=== PATIENT | male | born 1990 | race Caucasian/White ===

== ENCOUNTER 2021-08-26 18:22 | Emergency (ER) | payer BC ==
[2021-08-26] MEDS ORDERED: Sodium Chloride 0.9% 1000 ML 1,000 ML IV STA ×2 (18:50→20:01)
[2021-08-26] MEDS ORDERED: TORAdol 30 mg Injection IV ONE (18:50)
[2021-08-26] MEDS ORDERED: Sodium Chloride 0.9% 1000 ML 1,000 ML ONE ×3 (18:53→20:54)
[2021-08-26] MEDS ORDERED: TORAdol 30 mg Injection ONE (18:53)
[2021-08-26 19:06] LABS: Absolute Neutrophil Ct (ANC) 7.59 (1.4-6.9); BASOPHIL % 0.1 % (0.0-0.4); Basophil (Absolute #) 0.01 (0-0.4); Eosinophil % 0.8 % (0.00-5.0); Eosinophil (Absolute #) 0.09 (0-0.5); Hematocrit 40.8 % (42-50); Hemoglobin 12.9 gm/dl (12.5-18.0); Lymphocyte (Absolute #) 2.32 (1.0-4.6); Lymphocytes % 21.1 % (24.0-44.0); Mean Cell Volume 99.5 fl (78-100); Mean Corpuscular Hemoglobin 31.5 pg (26-32); Mean Corpuscular Hgb Concent. 31.6 g/dl (32-36); Mean Platelet Volume 11.1 fl (7.5-11.0); Monocyte (Absolute #) 0.96 (0.0-1.3); Monocytes % 8.8 % (0.0-12.0); Neutrophil % 69.2 % (36.0-66.0); Platelet Count 342 K/mm3 (150-450); Red Cell Distribution Width 12.5 % (11.5-14.0)
[2021-08-26 19:26] LABS: Appearance SLIGHTLY CLOUDY (CLEAR); Bilirubin NEGATIVE (NEGATIVE); Blood NEGATIVE Ery/ul (0-5); Glucose NEGATIVE (NEGATIVE); Ketones TRACE (NEGATIVE); Leukocyte Esterase NEGATIVE (NEGATIVE); Mucus SLIGHT /HPF (NEGATIVE); Nitrite NEGATIVE (NEGATIVE); Protein,Urine Dip NEGATIVE (Negative); Specific Gravity 1.027 (1.005-1.025); Urobilinogen NEGATIVE mg/dL (0-1)
[2021-08-26 19:33] LABS: ALBUMIN 4.9 g/dL (3.5-5.0); ALKALINE PHOSPHATASE 63 U/L (38-126); ANION GAP 14.8 MEQ/L (5-15); BLOOD UREA NITROGEN 18 mg/dL (9-20); CHLORIDE 106 mmol/L (98-107); Carbon Dioxide 23 mmol/L (22-30); Creatinine 1 0.99 mg/dL (0.66-1.25); EST GLOMERULAR FILTRATION RATE > 60.0 ML/MIN; Glucose 125 mg/dL (74-106); LIPASE 40 U/L (23-300); Potassium 4.1 mmol/L (3.5-5.1); SGOT/AST 28 U/L (17-59); SGPT/ALT 19 U/L (0-50); SODIUM 140 mmol/L (137-145); Total Protein 7.3 g/dL (6.3-8.2)
--- NOTE | 2021-08-26 19:54 | ERPHSYRPT ---
- History of Present Illness Time Seen by Provider: 08/26/21 18:45 Historian: patient Exam Limitations: no limitations Patient Subjective Stated Complaint: pt reports LUQ ABD PAIN starting today after work, pt denies any injury or accident, pt states he also got dizzy when the pain started. Triage Nursing Assessment: pt is aox3, pupils perrl, afebrile, pt appears pale, clammy, radial pulses strong and equal, cap refill < 3 seconds, pt abd soft, tender to the LUQ, pt skin intact. Physician History: Patient is a 31-year-old male presents to our ED with acute onset left upper quadrant pain. Patient states that he was climbing into his truck when the pain started. Patient became acutely dizzy for short period of time. He feels well at this time. Pain was well localized. No radiation. Pain worse with palpation. Pain improved with rest. Patient denies any trauma. No falls. No altercations. Patient denies any history of mononucleosis. No chest pain or shortness of breath. No nausea vomiting or diaphoresis. No numbness tingling or weakness. Patient voices no other complaints or concerns at this time. Timing/Duration: today Activities at Onset: other (Climbing into his truck.) Quality: aching Abdominal Pain Onset Location: LUQ Pain Radiation: no radiation Severity of Pain-Max: moderate Severity of Pain-Current: mild Associated Symptoms: other (Dizziness) Previous symptoms: no prior history Allergies/Adverse Reactions: No Known Drug Allergies Allergy (Unverified 08/26/21 18:46) Home Medications: No Reportable Medications [No Reported Medications] 08/26/21 [History] Hx Tetanus, Diphtheria Vaccination/Date Given: Yes Hx Influenza Vaccination/Date Given: No Hx Pneumococcal Vaccination/Date Given: No Immunizations Up to Date: Yes Travel Risk - International Travel Have you traveled outside of the country in past 3 weeks: No - Coronavirus Screening Are you exhibiting any of the following symptoms?: No Close contact with a COVID-19 positive Pt in past 14-21 Days: No - Vaccine Status Have you recieved a Covid-19 vaccination: No - Review of Systems Constitutional: No Symptoms, No Fever, No Chills Eyes: No Symptoms Ears, Nose, & Throat: No Symptoms Respiratory: No Symptoms, No Cough, No Dyspnea Cardiac: No Symptoms, No Chest Pain, No Edema, No Syncope Abdominal/Gastrointestinal: No Symptoms, No Abdominal Pain, No Nausea, No Vomiting, No Diarrhea Genitourinary Symptoms: No Symptoms, No Dysuria Musculoskeletal: No Symptoms, No Back Pain, No Neck Pain Skin: No Symptoms, No Rash Neurological: No Symptoms, No Dizziness, No Focal Weakness, No Sensory Changes Psychological: No Symptoms Endocrine: No Symptoms Hematologic/Lymphatic: No Symptoms Immunological/Allergic: No Symptoms All Other Systems: Reviewed and Negative - Past Medical History Pertinent Past Medical History: No - Past Surgical History Past Surgical History: No - Social History Smoking Status: Current every day smoker Drug Use: none Patient Lives Alone: No - Nursing Vital Signs Nursing Vital Signs: Initial Vital Signs Temperature 98.5 F 08/26/21 18:34 Pulse Rate 114 H 08/26/21 18:34 Respiratory Rate 20 08/26/21 18:34 Blood Pressure 125/90 08/26/21 18:34 O2 Sat by Pulse Oximetry 99 08/26/21 18:34 Pain Scale Pain Intensity 5 - Physical Exam General Appearance: no apparent distress, alert Eye Exam: PERRL/EOMI, eyes nml inspection Ears, Nose, Throat Exam: normal ENT inspection, pharynx normal, moist mucous membranes Neck Exam: normal inspection, non-tender, supple, full range of motion Respiratory Exam: normal breath sounds, lungs clear, airway intact, No respiratory distress Cardiovascular Exam: regular rate/rhythm, normal heart sounds, normal peripheral pulses Gastrointestinal/Abdomen Exam: soft, tenderness (Tenderness to palpation left upper quadrant into the left flank.), No mass, No guarding Back Exam: normal inspection, normal range of motion, No CVA tenderness, No vertebral tenderness Extremity Exam: normal inspection, normal range of motion, pelvis stable Neurologic Exam: alert, oriented x 3, cooperative, normal mood/affect, nml cerebellar function, sensation nml, No motor deficits Skin Exam: normal color, warm, dry Lymphatic Exam: No adenopathy SpO2 Interpretation: normal SpO2: 97 O2 Delivery: Room Air - Course Nursing assessment & vital signs reviewed: Yes - CT Exams Abdomen/Pelvis CT Interpretation: Tele-radiologist Report (No comparisons. Enlarged 15.5 cm he terogenous spleen with mild abdomen and pelvic free fluid rule out splenic rupture. Mild distended gallbladder with multiple tiny cholesterol stones. No renal stones or obstructive uropathy. Normal appendix.) Ordered Tests: Active Orders 24 hr Category Date Time Status IV Insertion STAT Care 08/26/21 18:50 Active IV Insertion-2nd Peripheral STAT Care 08/26/21 19:59 Active ABDOMEN AND PELVIS W/0 CONTRAS [CT] Stat Exams 08/26/21 18:50 Taken CBC W DIFF Stat Lab 08/26/21 19:00 Completed CMP Stat Lab 08/26/21 19:00 Completed LIPASE Stat Lab 08/26/21 19:00 Completed TROPONIN Q3H Lab 08/26/21 19:00 Completed TROPONIN Q3H Lab 08/26/21 22:00 Ordered TROPONIN Q3H Lab 08/27/21 01:00 Ordered TROPONIN Q3H Lab 08/27/21 04:00 Ordered TROPONIN Q3H Lab 08/27/21 07:00 Ordered UA W/RFX UR CULTURE Stat Lab 08/26/21 18:52 Completed Medication Summary Generic Name Dose Route Start Last Admin Trade Name Freq PRN Reason Stop Dose Admin Sodium Chloride 1,000 mls @ 100 mls/hr 08/26/21 21:00 08/26/21 20:55 Sodium Chloride 0.9% 1000 Ml IV 09/25/21 20:59 100 mls/hr .Q10H ALTARGACIA Administration Discontinued Medications Generic Name Dose Route Start Last Admin Trade Name Freq PRN Reason Stop Dose Admin Fentanyl Citrate 100 mcg 08/26/21 19:59 08/26/21 20:05 Fentanyl Citrate 100 Mcg/2 Ml* Vial IV 08/26/21 20:00 100 mcg STAT ONE Administration Fentanyl Citrate Confirm 08/26/21 20:02 Fentanyl Citrate 100 Mcg/2 Ml* Vial Administered 08/26/21 20:03 Dose 100 mcg .ROUTE .STK-MED ONE Fentanyl Citrate 100 mcg 08/26/21 20:53 08/26/21 20:55 Fentanyl Citrate 100 Mcg/2 Ml* Vial IV 08/26/21 20:54 100 mcg STAT ONE Administration Fentanyl Citrate Confirm 08/26/21 20:54 Fentanyl Citrate 100 Mcg/2 Ml* Vial Administered 08/26/21 20:55 Dose 100 mcg .ROUTE .STK-MED ONE Sodium Chloride 1,000 mls @ 999 mls/hr 08/26/21 18:50 08/26/21 19:56 Sodium Chloride 0.9% 1000 Ml IV 08/26/21 19:50 Infused .Q1H1M STA Infusion Sodium Chloride Confirm 08/26/21 18:53 Sodium Chloride 0.9% 1000 Ml Administered 08/26/21 18:54 Dose 1,000 mls @ ud .ROUTE .STK-MED ONE Sodium Chloride 1,000 mls @ 999 mls/hr 08/26/21 20:01 08/26/21 20:05 Sodium Chloride 0.9% 1000 Ml IV 08/26/21 21:01 999 mls/hr .Q1H1M STA Administration Sodium Chloride Confirm 08/26/21 20:02 Sodium Chloride 0.9% 1000 Ml Administered 08/26/21 20:03 Dose 1,000 mls @ ud .ROUTE .STK-MED ONE Ketorolac Tromethamine 30 mg 08/26/21 18:50 08/26/21 18:54 Ketorolac Tromethamine 30 Mg/Ml Inj IV 08/26/21 18:51 30 mg STAT ONE Administration Ketorolac Tromethamine Confirm 08/26/21 18:53 Ketorolac Tromethamine 30 Mg/Ml Inj Administered 08/26/21 18:54 Dose 30 mg .ROUTE .STK-MED ONE Ondansetron HCl 4 mg 08/26/21 20:00 08/26/21 20:05 Ondansetron Hcl 4 Mg/2 Ml Vial IV 08/26/21 20:01 4 mg STAT ONE Administration Ondansetron HCl Confirm 08/26/21 20:02 Ondansetron Hcl 4 Mg/2 Ml Vial Administered 08/26/21 20:03 Dose 4 mg .ROUTE .STK-MED ONE Lab/Rad Data: Laboratory Result Diagrams 08/26/21 19:00 08/26/21 19:00 Laboratory Results 08/26/21 08/26/21 08/26/21 Range/Units 19:55 19:00 19:00 WBC (4.0-10.5) K/mm3 RBC (4.1-5.6) M/mm3 Hgb (12.5-18.0) gm/dl Hct (42-50) % MCV (78-100) fl MCH (26-32) pg MCHC (32-36) g/dl RDW (11.5-14.0) % Plt Count (150-450) K/mm3 MPV (7.5-11.0) fl Gran % (36.0-66.0) % Eos # (Auto) (0-0.5) Absolute Lymphs (auto) (1.0-4.6) Absolute Monos (auto) (0.0-1.3) Lymphocytes % (24.0-44.0) % Monocytes % (0.0-12.0) % Eosinophils % (0.00-5.0) % Basophils % (0.0-0.4) % Absolute Granulocytes (1.4-6.9) Basophils # (0-0.4) Sodium 140 (137-145) mmol/L Potassium 4.1 (3.5-5.1) mmol/L Chloride 106 (98-107) mmol/L Carbon Dioxide 23 (22-30) mmol/L Anion Gap 14.8 (5-15) MEQ/L BUN 18 (9-20) mg/dL Creatinine 0.99 (0.66-1.25) mg/dL Estimated GFR > 60.0 ML/MIN Glucose 125 H (74-106) mg/dL Calcium 10.0 (8.4-10.2) mg/dL Total Bilirubin 0.60 (0.2-1.3) mg/dL AST 28 (17-59) U/L ALT 19 (0-50) U/L Alkaline Phosphatase 63 (38-126) U/L Troponin I < 0.012 (0.000-0.034) ng/mL Serum Total Protein 7.3 (6.3-8.2) g/dL Albumin 4.9 (3.5-5.0) g/dL Lipase 40 (23-300) U/L Urine Color (YELLOW) Urine Appearance (CLEAR) Urine pH (5-6) Ur Specific [place] (1.005-1.025) Urine Protein (Negative) Urine Ketones (NEGATIVE) Urine Blood (0-5) Dejon/ul Urine Nitrite (NEGATIVE) Urine Bilirubin (NEGATIVE) Urine Urobilinogen (0-1) mg/dL Ur Leukocyte Esterase (NEGATIVE) Urine WBC (Auto) (0-5) /HPF Urine RBC (Auto) (0-2) /HPF U Epithel Cells (Auto) (FEW) /HPF Urine Bacteria (Auto) (NEGATIVE) /HPF Urine Mucus (Auto) (NEGATIVE) /HPF Urine Culture Reflexed (NO) Urine Glucose (NEGATIVE) mg/dL ABO Group A Rh Factor POSITIVE Antibody Screen NEGATIVE (NEGATIVE) 08/26/21 08/26/21 Range/Units 19:00 18:52 WBC 11.0 H (4.0-10.5) K/mm3 RBC 4.10 (4.1-5.6) M/mm3 Hgb 12.9 (12.5-18.0) gm/dl Hct 40.8 L (42-50) % MCV 99.5 (78-100) fl MCH 31.5 (26-32) pg MCHC 31.6 L (32-36) g/dl RDW 12.5 (11.5-14.0) % Plt Count 342 (150-450) K/mm3 MPV 11.1 H (7.5-11.0) fl Gran % 69.2 H (36.0-66.0) % Eos # (Auto) 0.09 (0-0.5) Absolute Lymphs (auto) 2.32 (1.0-4.6) Absolute Monos (auto) 0.96 (0.0-1.3) Lymphocytes % 21.1 L (24.0-44.0) % Monocytes % 8.8 (0.0-12.0) % Eosinophils % 0.8 (0.00-5.0) % Basophils % 0.1 (0.0-0.4) % Absolute Granulocytes 7.59 H (1.4-6.9) Basophils # 0.01 (0-0.4) Sodium (137-145) mmol/L Potassium (3.5-5.1) mmol/L Chloride (98-107) mmol/L Carbon Dioxide (22-30) mmol/L Anion Gap (5-15) MEQ/L BUN (9-20) mg/dL Creatinine (0.66-1.25) mg/dL Estimated GFR ML/MIN Glucose (74-106) mg/dL Calcium (8.4-10.2) mg/dL Total Bilirubin (0.2-1.3) mg/dL AST (17-59) U/L ALT (0-50) U/L Alkaline Phosphatase (38-126) U/L Troponin I (0.000-0.034) ng/mL Serum Total Protein (6.3-8.2) g/dL Albumin (3.5-5.0) g/dL Lipase (23-300) U/L Urine Color YELLOW (YELLOW) Urine Appearance SLIGHTLY CLOUDY (CLEAR) Urine pH 5.0 (5-6) Ur Specific [place] 1.027 (1.005-1.025) Urine Protein NEGATIVE (Negative) Urine Ketones TRACE (NEGATIVE) Urine Blood NEGATIVE (0-5) Dejon/ul Urine Nitrite NEGATIVE (NEGATIVE) Urine Bilirubin NEGATIVE (NEGATIVE) Urine Urobilinogen NEGATIVE (0-1) mg/dL Ur Leukocyte Esterase NEGATIVE (NEGATIVE) Urine WBC (Auto) NONE (0-5) /HPF Urine RBC (Auto) NONE (0-2) /HPF U Epithel Cells (Auto) NONE (FEW) /HPF Urine Bacteria (Auto) NONE (NEGATIVE) /HPF Urine Mucus (Auto) SLIGHT (NEGATIVE) /HPF Urine Culture Reflexed NO (NO) Urine Glucose NEGATIVE (NEGATIVE) mg/dL ABO Group Rh Factor Antibody Screen (NEGATIVE) - Progress Progress: improved Progress Note: I spoke to Dr. Hanna at [facility] who declined transfer. He feels that patient will require a splenic artery embolization. Per Dr. Hanna they are not equipped to perform this procedure at this time. 08/26/21 19:[address] Gilmore general surgeon at [facility]. She states they do have capability of emergent interventional radiology. She states patient will likely require a splenectomy. She accepts transfer. We are arranging air transport at this time. 08/26/21 20:21 Second large-bore IV inserted. Type and screen in progress. We are closely monitoring vitals. 08/26/21 20:26 Counseled pt/family regarding: lab results, diagnosis, rad results - Departure Departure Disposition: Transfer Clinical Impression: Splenomegaly, Ruptured spleen, Cholelithiasis, Distended gallbladder Condition: Stable Critical Care Time: No Referrals: DOCTOR,NO FAMILY [Primary Care Provider] - Follow up/PCP as directed
[2021-08-26] MEDS ORDERED: SUBLIMAZE 100 MCG/2 ML IV ONE ×2 (19:59→20:53)
[2021-08-26] MEDS ORDERED: Zofran 4 MG/2 ML VIAL IV ONE (20:00)
[2021-08-26] MEDS ORDERED: Zofran 4 MG/2 ML VIAL ONE (20:02)
[2021-08-26] MEDS ORDERED: SUBLIMAZE 100 MCG/2 ML ONE ×2 (20:02→20:54)
[2021-08-26 20:11] VITALS: PULSE 92
[2021-08-26 20:14] VITALS: O2SAT 97
[2021-08-26 20:44] LABS: ABO TYPING A; Antibody Screen NEGATIVE (NEGATIVE); RH TYPING POSITIVE
[2021-08-26 20:48] VITALS: BP 139/86
[2021-08-26] MEDS ORDERED: Sodium Chloride 0.9% 1000 ML 1,000 ML IV SCH (21:00)
--- NOTE | 2021-08-27 08:46 | XRAY ---
Indication: Left abdomen pain. Ureterolithiasis. Multiple contiguous axial images obtained through the abdomen and pelvis without contrast using renal stone protocol. Comparison: None Lung bases demonstrates minimal dependent atelectasis. Heart not enlarged. No renal calculus or evidence for obstructive uropathy in either system. Noncontrasted stomach and bowel loops appear nonobstructed. Normal appendix. Heterogeneous enlarged spleen measuring 15.5 cm with mild free fluid throughout the abdomen/pelvis concerning for ruptured spleen. No free air. Gallbladder mildly distended with multiple tiny cholesterol stones. Remaining liver, pancreas, adrenal glands, kidneys, ureters, bladder, and aorta appear unremarkable for noncontrast exam. Osseous structures intact. Impression: 1. Negative renal calculus or evidence for objective uropathy. 2. Heterogeneous enlarged spleen with abdominal/pelvic free fluid. Rule out ruptured spleen. Comment: Telephone report given to ordering clinician Dr. Mckeon at 1944 hrs on August 26, 2021.
== END 2021-08-26 21:18 | disposition short-term general hospital (02) ==
LOC: ED 18:22
DX: D73.5 Infarction of spleen (principal); R16.1 Splenomegaly, not elsewhere classified; K80.20 Calculus of gallbladder without cholecystitis without obstruction; Z72.0 Tobacco use
CPT/HCPCS: 36000; 36415; 74176; 80053; 81001; 83690; 84484; 85025; 86850; 86900; 86901; 96360; 96374; 96375; 96376; 99285; J1885; J2405; J3010